=== PATIENT | female | born 1975 | race Caucasian/White ===

== ENCOUNTER 2023-07-25 08:37 | Emergency (ER) | payer OTHER, SELFPAY ==
[2023-07-25 08:46] VITALS: BP 139/76; PULSE 87; RESP 16; TEMP 37.1; O2SAT 99
--- NOTE | 2023-07-25 08:51 | ED.SKABFB ---
HPI - Skin/Abscess/Foreign Bdy General Chief complaint: Skin/Abscess/Foreign Body Stated complaint: Eye Probem/Skin Sore Time Seen by Provider: 07/25/23 08:51 Source: patient Mode of arrival: ambulatory Limitations: no limitations History of Present Illness HPI narrative: 47 yo F presents with rash around eyes starting today. States third time having similar rash but this time has spread to neck with swelling. Has taken prednisone in the past to treat rash and it has completely resolved with steroids. has seen her PCP for this problem and also been seen at another . Is unsure why she is getting rash. Denies use of any new products. Has thrown away make up. All systems reviewed and negative except as noted above. Related Data Allergies Allergy/AdvReac Type Severity Reaction Status Date / Time No Known Allergies Allergy Verified 07/25/23 08:51 Review of Systems Review of Systems: CONSTITUTIONAL: Denies fever, chills, or sweats. EYES: Denies visual changes, redness, or discharge. ENT: Denies rhinorrhea, congestion, sore throat, or otalgia. CARDIOVASCULAR: Denies chest pain, palpitations, or edema. RESPIRATORY: Denies cough or dyspnea. GASTROINTESTINAL: Denies abdominal pain, nausea, vomiting, or diarrhea. GENITOURINARY: Denies dysuria or hematuria. SKIN: Reports itchy rash around eyes and to neck. MUSCULOSKELETAL: Denies back pain, joint pain, or myalgia. NEUROLOGIC: Denies headache, numbness, or weakness. PSYCHIATRIC: Denies anxiety or depression. All other systems reviewed are negative, except as documented in HPI. PMFSH Comments At time of signature, agree with nursing past medical, surgical, social and family history. There is no relevant family history pertinent to the presenting complaint. Exam Narrative: GENERAL: This is a well-nourished, well-developed patient, in no apparent distress. HEAD: normocephalic, atraumatic. EYES: PERRL. Sclera and conjunctiva clear/white. No drainage. vision is grossly intact. EARS: External ears normal NOSE: External nose normal NECK: Neck supple, non-tender without lymphadenopathy, masses or thyromegaly. CARDIOVASCULAR: Regular rate and rhythm without murmurs, gallops, or rubs. RESPIRATORY: Clear to auscultation. Breath sounds equal bilaterally. No wheezes, rales, or rhonchi. SKIN: warm, Dry, intact with no suspicious lesions, good texture and turgor. skin around eyes is erythematous with mild swelling. Unable to assess for dryness due to currently having vaseline on rash. there is also erythematous patchy rash to anterior aspect of neck with swelling. no drainage, fluctuance, warmth or tenderness. NEURO: awake, alert, and oriented to person, place and time. There were no obvious focal neurologic abnormalities. EXTREMITIES: No joint tenderness, effusion, or edema noted. Course Course Level of Care: Express Care Visit Vital Signs Vital signs: Vital Signs Temperature 37.1 C 07/25/23 08:46 Pulse Rate 87 07/25/23 08:46 Respiratory Rate 16 07/25/23 08:46 Blood Pressure 139/76 07/25/23 08:46 Pulse Oximetry 99 07/25/23 08:46 Oxygen Delivery Room Air 07/25/23 08:46 Temperature 37.1 C 07/25/23 08:46 Pulse Rate 87 07/25/23 08:46 Respiratory Rate 16 07/25/23 08:46 Blood Pressure 139/76 07/25/23 08:46 Pulse Oximetry 99 07/25/23 08:46 Oxygen Delivery Room Air 07/25/23 08:46 reviewed. MDM - Skin/Abscess/Foreign Bdy MDM Narrative Medical decision making narrative: prescribed prednisone. Will avoid use of topical steroids to face due to proximity to pt's eyes. recommend calling PCP to discuss ordering allergy testing or follow up with sodium chlorite operator/java developer with security clearance. Patient is aware of diagnosis, understands and agrees to treatment plan. Anticipatory guidance given. Patient agrees to follow-up as directed and is aware of reasons to seek care at the emergency department. Portions of this record may have been created with voice recogn
== END 2023-07-25 09:03 | disposition home or self-care (01) ==
PROVIDERS: Emergency Provider Nurse Practitioner Family; PCP Family Medicine
DX: R21 Rash and other nonspecific skin eruption (principal); I10 Essential (primary) hypertension
CPT/HCPCS: 99213; G0463